=== PATIENT | female | born 1990 | race Caucasian/White ===

== ENCOUNTER 2021-05-18 22:28 | Observation (INO) | payer OTHER, SELFPAY ==
--- NOTE | 2021-05-19 01:31 | LDADM ---
This patient, Kylie Rosen, was admitted to Labor/Delivery/Recovery 105 on 05/18/21 at 22:28. Plans for labor, pain management and were discussed with patient. Patient/family oriented to hospital policies and general routines including ID bracelet, bed and alarms, visiting hours, pain management, procedures, bathroom and other care routines, personal items, smoking policy, room service/diet and guest tray routines, security routines, and visiting hours. Patient/Family are encouraged to report perceived risks to care and to ask questions if they do not understand what they are told or what they should do. See OBIX for further documentation.
--- NOTE | 2021-05-19 07:39 | PM.OBTRLD ---
OB - Triage/Final Diagnosis Visit Information Date of evaluation: 05/19/21 Reason for evaluation: threatened labor Comments/Additional reasons for admission: I have assessed the risk for this patient, Kylie Rosen, and determined that she would benefit from observation care.
== END 2021-05-19 01:40 | disposition home or self-care (01) ==
PROVIDERS: Admitting Provider Obstetrics & Gynecology; PCP Nurse Practitioner Family; Visit Provider Obstetrics & Gynecology
DX: O47.1 False labor at or after 37 completed weeks of gestation (principal); Z3A.38 38 weeks gestation of pregnancy
CPT/HCPCS: G0378; G0379

== ENCOUNTER 2021-05-24 06:42 | Inpatient (IN) | payer OTHER, SELFPAY ==
[2021-05-24] VITALS (44 sets, daily range): BP systolic 116–157; BP diastolic 82–103; PULSE 68–147; RESP 18; TEMP 36.3–36.9; O2SAT 98–100
[2021-05-24] MEDS: LACTATED RINGERS 1,000 ML 125 ML IV CONT (07:02)
[2021-05-24 07:22] LABS: Basophils Percent Auto 0.5 % (0.2-1.2); Eosinophils Absolute Auto 0.1 K/mm3 (0-0.3); Eosinophils Percent Auto 0.8 % (0-4.4); Hematocrit 38.3 % (37.0-47.0); Hemoglobin 12.1 g/dL (12.0-15.0); Immature Granulocyte Absolute 0.05 K/mm3 (0.00-0.031); Immature Granulocyte Percent A 0.6 % (0-0.5); Lymphocytes Absolute Auto 2.43 K/mm3 (0.9-3.2); Lymphocytes Percent Auto 27.6 % (18.3-44.2); Mean Corpuscular HGB Conc 31.6 g/dl (32-36); Mean Corpuscular Hemoglobin 25.1 pg (26-34); Mean Corpuscular Volume 79.3 fl (80-100); Mean Platelet Volume 9.9 fl (7.4-10.4); Monocytes Absolute Auto 0.5 K/mm3 (0.1-0.6); Monocytes Percent Auto 5.1 % (2.6-8.5); Neutrophils Absolute Auto 5.8 K/mm3 (1.3-6.7); Neutrophils Percent Auto 65.4 % (45.5-73.1); Platelet Count Result 393 k/mm3 (150-375); Red Blood Count 4.83 M/mm3 (4.2-5.4); Red Cell Distribution Width 13.8 % (11.5-14.5); White Blood Count 8.8 K/mm3 (4.5-10.0)
--- NOTE | 2021-05-24 07:29 | WPDANESEPP ---
Anes - Eval Pre Procedure Procedure: labor epidural Date/Time: 05/24/21 07:29 Surgeon: raymond Preop Diagnosis: pain during labor Pre Op Diagnosis: induction of labor Patient Data Age: 30 Gender: F Height: 1.7 m Weight: 87 kg Last Vital Signs Pulse 102 H 05/24/21 07:27 BP 130/95 H 05/24/21 07:27 Pulse Ox 100 05/24/21 07:25 Allergies Allergy/AdvReac Type Severity Reaction Status Date / Time oxycodone Allergy Severe HALLUCINATI Verified 10/10/19 10:30 ONS Penicillins Allergy Intermediate Rash, Verified 10/10/19 10:30 Throat swelling codeine Allergy Abdominal Verified 10/10/19 10:30 Pain Home Medications Medication Instructions Recorded Confirmed Type PNV cmb#95-ferrous fumarate-FA 1 tablet PO DAILY 05/02/21 05/02/21 History [] Laboratory Tests 05/24/21 05/24/21 06:54 06:54 WBC 8.8 K/mm3 K/mm3 (4.5-10.0) RBC 4.83 M/mm3 M/mm3 (4.2-5.4) Hgb 12.1 g/dL g/dL (12.0-15.0) Hct 38.3 % % (37.0-47.0) MCV 79.3 fl L fl (80-100) MCH 25.1 pg L pg (26-34) MCHC 31.6 g/dl L g/dl (32-36) RDW 13.8 % % (11.5-14.5) Plt Count 393 k/mm3 H k/mm3 (150-375) MPV 9.9 fl fl (7.4-10.4) Immature Gran % (Auto) 0.6 % H % (0-0.5) Neut % (Auto) 65.4 % % (45.5-73.1) Lymph % (Auto) 27.6 % % (18.3-44.2) [place] % (Auto) 5.1 % % (2.6-8.5) Eos % (Auto) 0.8 % % (0-4.4) Baso % (Auto) 0.5 % % (0.2-1.2) Lymph # (Auto) 2.43 K/mm3 K/mm3 (0.9-3.2) [place] # (Auto) 0.5 K/mm3 K/mm3 (0.1-0.6) Eos # (Auto) 0.1 K/mm3 K/mm3 (0-0.3) Baso # (Auto) 0.0 K/mm3 K/mm3 (0.0-0.1) Abs Immat Gran (auto) 0.05 K/mm3 H K/mm3 (0.00-0.031) Absolute Neuts (auto) 5.8 K/mm3 K/mm3 (1.3-6.7) Absolute Nucleated RBC 0.0 K/mm3 K/mm3 (0.0-0.012) Nucleated RBC % 0.0 % % (0.0-0.2) RPR Pending Patient hx anesthesia problems: none Family hx anesthesia problems: none PMFSH Past Medical History Medical History (Updated 10/10/19 @ 10:02 by Yoni Mcdonough MD) Asthma EXERCISE INDUCED Family History Family History (Updated 05/02/21 @ 12:26 by Екатерина Ko RN) Father Diabetes mellitus Mother Hypothyroidism Social History Social History Substance use: never Gender identity (if verbalized by the patient): Female Spiritual care concerns: No Exam Day of Procedure 05/24/21 07:29
--- NOTE | 2021-05-24 07:58 | PM.IMHP ---
H&P: HPI History of Present Illness Date/Time: 05/24/21 07:58 30-year-old 5 para 3 admitted in active labor. She is negative for group B strep in her has been uncomplicated. Chief Complaint: active labor Review of Systems Review of Systems: All systems reviewed & are unremarkable except as noted in HPI and below PMFSH Past Medical History Medical History Asthma EXERCISE INDUCED Family History Family History Father Diabetes mellitus Mother Hypothyroidism Social History Social History Smoking status: Never smoker Second hand tobacco smoke exposure: No Substance use: never Gender identity (if verbalized by the patient): Female Spiritual care concerns: No Meds Home Medications and Allergies Home Medications Medication Instructions Recorded Confirmed Type PNV cmb#95-ferrous fumarate-FA 1 tablet PO DAILY 05/02/21 05/02/21 History [] Allergies Allergy/AdvReac Type Severity Reaction Status Date / Time oxycodone Allergy Severe HALLUCINATI Verified 10/10/19 10:30 ONS Penicillins Allergy Intermediate Rash, Verified 10/10/19 10:30 Throat swelling codeine Allergy Abdominal Verified 10/10/19 10:30 Pain Vital Signs Vital Signs - 24 hr 05/24/21 07:10 05/24/21 07:11 05/24/21 07:14 Pulse Rate 103 H 106 H Blood Pressure 142/100 H 137/103 H Pulse Oximetry 100 05/24/21 07:15 05/24/21 07:16 05/24/21 07:19 Pulse Rate 90 93 Blood Pressure 138/97 H 135/87 Pulse Oximetry 100 05/24/21 07:20 05/24/21 07:21 05/24/21 07:22 Pulse Rate 95 95 Blood Pressure 129/90 126/88 Pulse Oximetry 100 05/24/21 07:25 05/24/21 07:27 05/24/21 07:30 Pulse Rate 97 102 H Blood Pressure 125/85 130/95 H Pulse Oximetry 100 100 05/24/21 07:31 05/24/21 07:34 05/24/21 07:35 Pulse Rate 89 116 H Blood Pressure 133/90 134/88 Pulse Oximetry 100 05/24/21 07:37 05/24/21 07:39 05/24/21 07:40 Pulse Rate 141 H 103 H Blood Pressure 119/89 126/92 H Pulse Oximetry 100 05/24/21 07:42 05/24/21 07:45 05/24/21 07:48 Pulse Rate 102 H 99 Blood Pressure 132/90 133/86 Pulse Oximetry 100 100 05/24/21 07:52 05/24/21 07:54 05/24/21 07:56 Pulse Rate Blood Pressure Pulse Oximetry 100 98 100 05/24/21 07:57 Pulse Rate Blood Pressure Pulse Oximetry 100 Exam Const: General: no acute distress Eyes: General: appearance normal, both eyes and all related structures Neck: Neck: supple and no JVD Thyroid: thyroid normal Resp: Effort & Inspection: normal respiratory effort Auscultation: clear to auscultation bilaterally Cardio: Rate: regular rate Rhythm: regular rhythm GI: Inspection: non-distended GI Palp: Yes Soft to palpation, No Tenderness to palpation present (GI) and No Guarding due to palpation present (GI) Auscultation: normal bowel sounds : Speculum Exam - Vagina: normal appearance of the vagina Speculum Exam - Cervix: normal appearance of the cervix and Cervical os closed ( Cervix 8/100%/ -1. AROM with thick mac. FHTs reassuring) Skin: General skin exam: no rashes or lesions noted Extrem: General: normal to inspection and no edema Psych: Mental Status: mental status grossly normal Affect: normal affect H&P: Results Labs Labs: Short CBC 05/24/21 Range/Units 06:54 WBC 8.8 (4.5-10.0) K/mm3 Hgb 12.1 (12.0-15.0) g/dL Hct 38.3 (37.0-47.0) % Plt Count 393 H (150-375) k/mm3 Assessment and Plan Additional Plan impression: Term in active labor with thick meconium Plan spontaneous vaginal delivery is expected. Epidural is in and working. Pediatrics aware of thick meconium
--- NOTE | 2021-05-24 08:13 | PM.OBPRVD ---
OB - Delivery Note Procedure Delivery date: 05/24/21 Intrapartal events: None and Precipitous Labor < 3 hours Induction method: none Delivery monitor: external FHT Route of delivery: Episiotomy description: None Laceration Description: None Specimen: No Quantitative Blood Loss (ml): 58 Anesthesia type: Epidural Baby Date of : 05/24/21 Time of : 08:07 Weeks of gestation at delivery: 39 gender: Female presentation: vertex position: Right Occiput Anterior Placenta delivery description: Spontaneous cord vessel description: 3 Vessels score one minute: 8 score five minutes: 9
[2021-05-24] MEDS: OXYTOCIN 30 UNITS/NS 500 ML 30 UNITS/500 ML BAG 999 UNITS IV CONT (08:15)
[2021-05-24] MEDS: IBUPROFEN 600 MG TABLET (08:35)
[2021-05-24] MEDS: BENZOCAINE 20% AER SPR (*SP) 56 GM CAN 1 SPRAY TOPICAL (10:29)
[2021-05-24] MEDS: WITCH HAZEL 40 PADS 1 PAD TOPICAL (10:29)
--- NOTE | 2021-05-24 11:25 | OBPPTRN ---
Patient transferred to post room #281 via wheelchair. Support person present. Oriented to unit, room, information board, rooming in, admission packet and security measures. Patient verbalizes understanding.
[2021-05-24] MEDS: IBUPROFEN 600 MG TABLET PO ×2 (14:37→22:41)
[2021-05-24] MEDS: DOCUSATE SODIUM 100 MG CAPSULE PO (22:43)
[2021-05-25] VITALS: BP 113/78; PULSE 77; RESP 18; TEMP 36.9; O2SAT 98
[2021-05-25 04:38] VITALS: BP 120/81; PULSE 70; RESP 18; TEMP 36.6; O2SAT 99
[2021-05-25 04:53] LABS: Hematocrit 32.2 % (37.0-47.0); Hemoglobin 10.1 g/dL (12.0-15.0)
--- NOTE | 2021-05-25 07:47 | PM.DS ---
DS: Admitting Diagnosis Admitting Diagnosis Term DS: Summary Hospital Course Hospital Course: The patient was originally scheduled for induction of labor. She did however Faheem in active labor and underwent spontaneous vaginal delivery with epidural anesthesia which was unremarkable. Her 24hour course was unremarkable Time Spent with Patient Time attestation: Total time spent providing and/or coordinating discharge services: Exam Const: General: no acute distress Eyes: General: appearance normal, both eyes and all related structures Neck: Neck: supple and no JVD Thyroid: thyroid normal Resp: Effort & Inspection: normal respiratory effort Auscultation: clear to auscultation bilaterally Cardio: Rate: regular rate Rhythm: regular rhythm GI: Inspection: non-distended GI Palp: Yes Soft to palpation, No Tenderness to palpation present (GI) and No Guarding due to palpation present (GI) Auscultation: normal bowel sounds : General: Yes bladder normal to palpation External Female Exam: normal external appearance Speculum Exam - Vagina: normal vaginal discharge and No vaginal bleeding Speculum Exam - Cervix: nontender Bimanual exam- vagina & uterus: bladder normal to palpation and No Cervical tenderness present OB/external & speculum: No vaginal bleeding Skin: General skin exam: no rashes or lesions noted Extrem: General: normal to inspection and no edema Psych: Mental Status: mental status grossly normal Affect: normal affect DS: Data Data Completed and Pending Labs on day of discharge: Labs from last 24 hours 05/25/21 05/24/21 04:06 06:54 Hgb 10.1 L Hct 32.2 L Blood Type A Positive Antibody Screen Negative Discharge Plan Discharge Attending physician on discharge: Farhat Whitmore Discharging Clinician: Farhat Whitmore Patient Disposition: Home, Self-Care Activity: may shower, no straining and pelvic rest Diet: heart healthy Patient Instructions: Antibiotic Form Stand Alone Forms: General Discharge Information Follow-up/Referrals: Farhat Whitmore MD [Physician] - Discharge Medications: Continued PNV cmb#95-ferrous fumarate-FA [] 28 mg iron- 800 mcg Tablet 1 tablet PO DAILY RF: 0 Date of admission: 05/24/21 06:42 Primary Care Provider: EddieGiorgio Admitting Provider: Farhat Whitmore Attending physician on admission: Farhat Whitmore Condition: Stable
--- NOTE | 2021-05-25 07:49 | P.PNOB_ITS ---
OB - PN: Subj Subjective Date/time seen: 05/25/21 07:49 Patient comments: no complaints and pain well controlled baby status: doing well and nursing well OB - PN: Obj Data Labs CBC & Chem 7: 05/25/21 04:06 Labs: Laboratory Results - last 24 hr 05/24/21 05/25/21 06:54 04:06 Hgb 10.1 L Hct 32.2 L Blood Type A Positive Antibody Screen Negative OB - PN A/P Plan day: 1 Plan: routine care, discharge home and follow up 6 weeks Time Spent With Patient Time: Total time spent is greater than 50% in coordination of care (as documented) at patient's floor/unit and/or counseling patient: Time with patient: less than 15 minutes Review of Systems Review of Systems: All systems reviewed & are unremarkable except as noted in HPI and below Exam Const: General: no acute distress Eyes: General: appearance normal, both eyes and all related structures Neck: Neck: supple and no JVD Thyroid: thyroid normal Resp: Effort & Inspection: normal respiratory effort Auscultation: clear to auscultation bilaterally Cardio: Rate: regular rate Rhythm: regular rhythm GI: Inspection: non-distended GI Palp: Yes Soft to palpation, No Tenderness to palpation present (GI) and No Guarding due to palpation present (GI) Au scultation: normal bowel sounds : General: Yes bladder normal to palpation External Female Exam: normal external appearance Speculum Exam - Vagina: normal vaginal discharge and No vaginal bleeding Speculum Exam - Cervix: nontender Bimanual exam- vagina & uterus: bladder normal to palpation and No Cervical tenderness present OB/external & speculum: No vaginal bleeding Skin: General skin exam: no rashes or lesions noted Extrem: General: normal to inspection and no edema Psych: Mental Status: mental status grossly normal Affect: normal affect
[2021-05-25 08:00] VITALS: BP 106/75; PULSE 71; RESP 16; TEMP 36.3; O2SAT 98
--- NOTE | 2021-05-25 09:15 | PC.NURSE ---
Observed mother is able to independently latch with appropriate positioning/alignment. She denies any nipple discomfort, is feeding as required and waking infant to feed if needed. this is mother's 4 child to breastfeed. has had at least 8 effective feedings in the past 24 hours, and is currently meeting outcomes for weight, output, jaundice and feeding frequencies. Mother states she feels confident to continue effective at home. Reviewed transition to breast milk, signs of adequate intake, and engorgement/relief. Instructed to call ICP if intake/output less than required. Reviewed regular medications mother is taking. Information provided per Radha. Reviewed community resources on the [facility] website and in the Mom/Baby guide. Information on outpatient services provided. Mother has no further questions at this time.
[2021-05-25] MEDS: IBUPROFEN 600 MG TABLET PO (09:48)
[2021-05-25] MEDS: MULTIVIT/MIN/PREN/FOL AC/IRON TABLET 1 TAB PO (09:49)
[2021-05-25 10:00] LABS: Rapid Plasma Reagin Non-Reactive (NonReactive)
--- NOTE | 2021-05-25 14:14 | PC.NURSE ---
Patient was given the opportunity to view the discharge video Mother & Baby Care, The First Two Weeks and to ask questions. Patient declined viewing the video and has been given the mother/baby guide for home reference.
[2021-05-27 09:55] VITALS: BP 122/89; PULSE 98; RESP 16; TEMP 37.3; O2SAT 99
== END 2021-05-25 14:15 | disposition home or self-care (01) | DRG 807 ==
LOC: ANHLDR 06:49 → ANHOB2 11:40
PROVIDERS: Admitting Provider Obstetrics & Gynecology; PCP Nurse Practitioner Family; Visit Provider Obstetrics & Gynecology
DX: O62.3 Precipitate labor (principal); Z37.0 Single live birth; Z3A.39 39 weeks gestation of pregnancy; O77.0 Labor and delivery complicated by meconium in amniotic fluid
CPT/HCPCS: 36415; 85014; 85018; 85025; 86592; 86850; 86900; 86901; A9270; J2590; J2795; J7120